=== PATIENT | female | born 1970 | race Caucasian/White ===

== ENCOUNTER 2018-09-16 15:35 | Inpatient (IN) ==
[2018-09-16] MEDS ORDERED: MethylPREDNISolone Sod Succinate Inj 125 MG/2 ML Vial IV.PUSH ONE (15:46)
--- NOTE | 2018-09-16 16:02 | ED ---
HPI General Chief Complaint: Respiratory Symptoms Stated Complaint: SOB Time Seen by Provider: 09/16/18 15:36 Source: patient and EMS Mode of arrival: EMS Limitations: no limitations History of Present Illness HPI Narrative: Patient is a 48-year-old female presenting to emerge department for evaluation of shortness of breath. Patient states it started 3 weeks ago, she went to her primary doctor at that time and was given an albuterol inhaler. She states since then has been worsening. Patient states that she has been wheezing. She denies any fevers or chills, she states the cough is productive with yellow sputum. She further denies any nausea, vomiting, dizziness, headaches, chest pain. Patient last used her albuterol inhaler 2 hours prior to arrival in the emergency department. Symptom onset was gradual, symptoms are moderate nature. No known exacerbating factors, there are no alleviating factors at this time. Patient has a 30-year history of smoking, she quit 2 years ago. Onset (ago): week(s) Duration: constant and progressively worsening Severity: severe Relieving factors: nothing Exacerbating factors: nothing Description of mucous: Reports green Related Data Home Medications Medication Instructions Recorded Confirmed Seizure Med Unknown 09/16/18 Allergies Allergy/AdvReac Type Severity Reaction Status Date / Time aspirin Allergy Unknown Anaphylaxis Verified 09/16/18 15:46 Review of Systems ROS: all other systems reviewed are negative [facility] Medical History Medical History Seizures (Acute) Surgical History Surgical History History of tubal ligation (Acute) Previous section (Acute) Family History Family History Other Family history normal Social History Social History Substance History: No History of Abuse Smoking Status: Former smoker How Often Do You Have a Drink Containing Alcohol: Monthly or less Recent Travel in [facility] within the Last 8 Weeks: No Recent Out of Country Travel within the Last 8 Weeks: No Immunization History Tetanus Immunization: Unsure Exam Narrative Exam Narrative: GENERAL: Thin, well-developed, alert female. Presenting in no acute distress. SKIN: Focused skin assessment warm/dry. HEAD: Atraumatic. Normocephalic. EYES: Pupils equal and round. No scleral icterus. No injection or drainage. ENT: No nasal bleeding or discharge. Mucous membranes pink and moist. NECK: Trachea midline. No JVD. CARDIOVASCULAR: Tachycardic. No murmur appreciated. RESPIRATORY: Tachypnea. Decreased breath sounds at the bases, expiratory wheezing throughout. GASTROINTESTINAL: Abdomen soft, non-tender, nondistended. Hepatic and splenic margins not palpable. MUSCULOSKELETAL: No obvious deformities. No clubbing. No cyanosis. No edema. NEUROLOGICAL: Awake and alert. No obvious cranial nerve deficits. Motor grossly within normal limits. Normal speech. PSYCHIATRIC: Appropriate mood and affect; insight and judgment normal. Course Initial Documented Vital Signs Temperature 98.9 F 09/16/18 15:41 Pulse Rate 109 H 09/16/18 15:41 Respiratory Rate 27 H 09/16/18 15:41 Blood Pressure 132/79 09/16/18 15:41 Pulse Oximetry 97 09/16/18 15:41 Last Documented Vital Signs Temperature 98.9 F 09/16/18 15:41 Pulse Rate 114 H 09/16/18 19:34 Respiratory Rate 36 H 09/16/18 19:35 Blood Pressure 132/79 09/16/18 15:41 Pulse Oximetry 97 09/16/18 20:15 Medical Decision Making MDM Narrative Medical decision making narrative: Patient presented for evaluation of shortness of breath. She did [id number] history of smoking, never diagnosed with COPD. She is tachypneic and tachycardic on arrival, patient will be given duo nebs, Solu-Medrol and budesonide now. Imaging and labs ordered and pending. Labs reviewed, no acute findings identified. Chest x-ray showed abnormality and recommended CT scan. CT shows bilateral pneumonitis, worse in the left than the right. Patient was given azithromycin and Rocephin. She also received a liter of IV fluids. Heart rate trends down to the low 100s when patient is sedentary, she attempted to ambulate to the bathroom and her heart rate increased to 120s. Her pulse ox when ambulating trended down to 89-90% after walking only 20 feet. Patient became very tachypneic and again her heart rate increase. For this reason patient will be admitted to optimize respiratory status. Patient is agreeable, admit orders placed. Medical Screen Exam Complete: Yes Emergency Medical Condition: Yes Differential Diagnosis Differential Diagnosis: Bronchitis versus pneumonia versus metabolic abnormality versus pulmonary embolism versus other Lab Data Lab results reviewed: Yes I reviewed the patient's lab results. Result diagrams: 09/16/18 16:01 09/16/18 16:01 Lab Results 09/16/18 09/16/18 09/16/18 Range/Units 16:01 16:01 16:01 WBC 10.4 (4.0-11.0) th/mm3 RBC 4.62 (4.00-5.30) mil/mm3 Hgb 14.1 (11.6-15.3) gm/dL Hct 39.5 (35.0-46.0) % MCV 85.5 (80.0-100.0) fL MCH 30.5 (27.0-34.0) pg MCHC 35.7 (32.0-36.0) % RDW 13.8 (11.6-17.2) % Plt Count 334 (150-450) th/mm3 MPV 8.2 (7.0-11.0) fL Neut % (Auto) 66.4 (16.0-70.0) % Lymph % (Auto) 23.1 (9.0-44.0) % [place] % (Auto) 6.0 (0.0-8.0) % Eos % (Auto) 4.0 (0.0-4.0) % Baso % (Auto) 0.5 (0.0-2.0) % Neut # (Auto) 6.9 (1.8-7.7) th/mm3 Lymph # (Auto) 2.4 (1.0-4.8) th/mm3 [place] # (Auto) 0.6 (0.0-0.9) th/mm3 Eos # (Auto) 0.4 (0.0-0.4) th/mm3 Baso # (Auto) 0.1 (0.0-0.2) th/mm3 WBC Differential . Differential Comment Auto diff final D-Dimer Quant (PE/DVT) 0.51 H (0.00-0.50) mg/L FEU Sodium 138 (136-145) meq/L Potassium 4.3 (3.5-5.1) meq/L Chloride 106 (98-107) meq/L Carbon Dioxide 23.5 (21.0-32.0) meq/L Anion Gap 9 (5-15) meq/L BUN 14 (7-18) mg/dL Creatinine 0.83 (0.50-1.00) mg/dL Estimated GFR 73 L (>89) mL/min Random Glucose 92 (74-106) mg/dL Calcium 9.0 (8.5-10.1) mg/dL Magnesium 2.6 H (1.5-2.5) mg/dL Total Bilirubin 0.6 (0.2-1.0) mg/dL AST 34 (15-37) U/L ALT 19 (10-53) U/L Alkaline Phosphatase 104 (45-117) U/L Total Protein 9.0 H (6.4-8.2) g/dL Albumin 3.7 (3.4-5.0) g/dL Imaging Data Radiologist's impression: Chest X-Ray 09/16/18 15:46 CONCLUSION: Abnormal chest appearance. No priors. Recommend CT chest for further evaluation. Chest CTA 09/16/18 16:37 CONCLUSION: 1. No evidence of pulmonary embolism. No filling defects are identified. 2. Areas of pneumonitis left upper lobe greater than right upper lobe. The lung bases are clear. Discharge Plan Discharge Disposition Patient Disposition: 30 Still Patient Discharge Condition Condition: Stable Discharge Details Diagnosis: Pneumonia, Hypoxia Physicians Team ED Provider: Markel Boogie ED Midlevel Provider: Chelsy Bass Primary Care Provider: UNKNOWN, Attending Provider: Yamileth Valles Discharge Interventions Interventions: Vital Signs Last Done: 09/16/18 19:35 Status ED Status: Admitted Patient
[2018-09-16 16:22] LABS: Baso # (Auto) 0.1 th/mm3 (0.0-0.2); Baso % (Auto) 0.5 % (0.0-2.0); Eos # (Auto) 0.4 th/mm3 (0.0-0.4); Hematocrit 39.5 % (35.0-46.0); Hemoglobin 14.1 gm/dL (11.6-15.3); Lymph # (Auto) 2.4 th/mm3 (1.0-4.8); Lymph % (Auto) 23.1 % (9.0-44.0); Mean Corpuscular HGB Conc 35.7 % (32.0-36.0); Mean Corpuscular Hemoglobin 30.5 pg (27.0-34.0); Mean Corpuscular Volume 85.5 fL (80.0-100.0); Mean Platelet Volume 8.2 fL (7.0-11.0); Mono # (Auto) 0.6 th/mm3 (0.0-0.9); Neut # (Auto) 6.9 th/mm3 (1.8-7.7); Neut % (Auto) 66.4 % (16.0-70.0); Platelet Count 334 th/mm3 (150-450); Red Blood Count 4.62 mil/mm3 (4.00-5.30); Red Cell Distribution Width 13.8 % (11.6-17.2); White Blood Count 10.4 th/mm3 (4.0-11.0)
[2018-09-16] MEDS ORDERED: Azithromycin 250 MG Tablet PO ONE (16:23)
--- NOTE | 2018-09-16 16:32 | XR ---
EXAM DATE: 09/16/2018 3:46 PM EDT AGE/SEX: 48 years / Female INDICATIONS: Short of breath. CLINICAL DATA: This is the patient's initial encounter. Patient reports that signs and symptoms have been present for 2 days and indicates a pain score of 0/10. MEDICAL/SURGICAL HISTORY: None. None. COMPARISON: No prior exams available for comparison. FINDINGS: No prior studies are available. There is slight prominence of the left hilar region and loss of conca vity of the AP window. There is slight apparent superior retraction of the hilar structures which is presumably chronic. Slight biapical pleural thickening. No definite infiltrate or effusion elsewhere. Heart size is within normal limits. CONCLUSION: Abnormal chest appearance. No priors. Recommend CT chest for further evaluation. Electronically signed by: Aquiles Gray MD 09/16/2018 4:30 PM EDT
[2018-09-16 16:43] LABS: Alkaline Phosphatase 104 U/L (45-117)
[2018-09-16 16:45] LABS: Alanine Aminotransferase 19 U/L (10-53); Albumin 3.7 g/dL (3.4-5.0); Anion Gap 9 meq/L (5-15); Aspartate Aminotransferase 34 U/L (15-37); Blood Urea Nitrogen 14 mg/dL (7-18); Carbon Dioxide 23.5 meq/L (21.0-32.0); Chloride 106 meq/L (98-107); Glomerular Filtration Rate 73 mL/min (>89); Glucose,Random 92 mg/dL (74-106); Magnesium 2.6 mg/dL (1.5-2.5); Sodium 138 meq/L (136-145)
[2018-09-16 16:57] LABS: Potassium 4.3 meq/L (3.5-5.1)
--- NOTE | 2018-09-16 17:44 | CT ---
EXAM DATE: 09/16/2018 5:03 PM EDT AGE/SEX: 48 years / Female INDICATIONS: Abnormal chest x-ray. Shortness of breath. CLINICAL DATA: This is the patient's initial encounter. Patient reports that signs and symptoms have been present for 1 day and indicates a pain score of 0/10. MEDICAL/SURGICAL HISTORY: Seizures. Tubal ligation. section. RADIATION DOSE: 5.50 CTDI (mGy) COMPARISON: No prior exams available for comparison. TECHNIQUE: Volumetric scanning was performed using a multi-row detector CT scanner during bolus infu patricia of 50 ml Omnipaque 350 (iohexol) nonionic water-soluble contrast as a single exam dose. The desean a was post processed with a variety of visualization algorithms including full volume maximum intensi ty projection and sliding thin slab reformation. Using automated exposure control and adjustment of t he mA and/or kV according to patient size, radiation dose was kept as low as reasonably achievable to obtain optimal diagnostic quality images. DICOM format image data is available electronically for r eview and comparison. FINDINGS: Pulmonary Arteries: No filling defects are seen in the pulmonary arteries out to the subsegmental ve ssels. The left and right pulmonary arteries are normal in diameter. Lung: There is a geographic at times well marginated infiltrate in the left upper lobe posteriorly a nd in the left perihilar region. There are similar albeit smaller infiltrates in the right upper lobe particularly the right lung apex.. Effusion: None. Mediastinum: No evidence of mediastinal or hilar adenopathy. Other: The axilla is unremarkable. CONCLUSION: 1. No evidence of pulmonary embolism. No filling defects are identified. 2. Areas of pneumonitis left upper lobe greater than right upper lobe. The lung bases are clear. Electronically signed by: Brent Ramirez MD 09/16/2018 5:43 PM EDT
[2018-09-16] MEDS ORDERED: Sod Chloride 0.9% Inj 1,000 ML IV.SIG SCH (18:45)
[2018-09-16] MEDS ORDERED: Acetaminophen 325 MG Tablet PO PRN (20:11)
[2018-09-16] MEDS ORDERED: Bisacodyl 10 MG Supp RECTAL PRN (20:11)
--- NOTE | 2018-09-16 20:16 | P.HP ---
History of Present Illness Service: [facility] Primary Care Physician: UNKNOWN History of Present Illness: 48-year-old female with a past medical history of seizure disorder, not currently taking any medications and last seizure 1 year ago with history of tobacco abuse presents the emergency department for evaluation of shortness of breath. Patient reports that her symptoms started last night and she was just not able to breathe. She endorses an accompanying cough productive of yellow sputum. Denies any fever/chills. Does not have a formal diagnosis of COPD. No chest pain. No abdominal pain. No nausea/vomiting/diarrhea. Inpatient Certification: I certify that the inpatient services were ordered in accordance with Medicare regulations governing the order. This includes certification that hospital inpatient services are reasonable and necessary and in the case of services not specified as inpatient-only under 42 CFR 419.22(n), that they are appropriately provided as inpatient services in accordance to with the 2-midnight benchmark under 43 CFR 412.3(e) Review of Systems All other systems reviewed negative except as stated in [facility] - History History Provided By: Patient, Bulkhead Carpenter / EMT - Medical History Medical History: Medical History (Last Reviewed 09/16/18 @ 20:13 by Yamileth Valles MD) Seizures - Surgical History Surgical History: Surgical History (Last Reviewed 09/16/18 @ 20:13 by Yamileth Valles MD) History of tubal ligation Previous section - Family History Family History: Family History (Last Updated 09/16/18 @ 20:14 by Yamileth Valles MD) Other Family history normal - Tobacco History Smoking Status: Former smoker - Alcohol History How Often Do You Have a Drink Containing Alcohol: Monthly or less - Substance Use History Substance History: No History of Abuse - Travel History Recent Travel in the [place] Within the Last 8 Weeks: No Recent Travel Out of the Country Within the Last 8 Weeks: No - Immunization History Tetanus Immunization: Unsure Medications and Allergies Active Medications: Active Medications Ceftriaxone Sodium 2,000 mg/ (Sodium Chloride) 100 mls @ 200 mls/hr IV.SIG Q24H DEREK Last Infusion: 09/16/18 19:31 Dose: Infused Sodium Chloride (Ns Inj) 1,000 mls @ 0 mls/hr IV.SIG BOLUS DEREK Last Infusion: 09/16/18 19:31 Dose: Infused Allergies Allergy/AdvReac Type Severity Reaction Status Date / Time aspirin Allergy Unknown Anaphylaxis Verified 09/16/18 15:46 Home Medications Medication Instructions Recorded Confirmed Type Seizure Med Unknown 09/16/18 History Exam Vital signs: Vital Signs 09/16/18 15:41 09/16/18 15:49 09/16/18 19:34 Temperature 98.9 F Pulse Rate 109 H 114 H Respiratory Rate 27 H 26 H Blood Pressure 132/79 Pulse Oximetry 97 97 94 L 09/16/18 19:35 Temperature Pulse Rate Respiratory Rate 36 H Blood Pressure Pulse Oximetry 90 L Intake & Output 09/16/18 09/16/18 09/17/18 06:59 18:59 06:59 Intake Total 1100 / 1100 Balance 1100 / 1100 Weight 55.338 kg Intake: IV 1100 / 1100 NS Inj 1,000 ML @ Wide Open IV. 1000 / 1000 SIG BOLUS DEREK Rx#:[id number] Rocephin Inj 2,000 MG In NS Inj 100 / 100 100 ML @ 200 mls/hr IV.SIG Q24H DEREK Rx#:[id number] Narrative: Gen.: No acute distress Head: Normocephalic. Atraumatic. EENT: Pupils equal round and reactive to light. Nose without drainage. Airway intact. Throat without injection. Cardiovascular: Regular rate and rhythm. No murmurs, rubs or gallops. Respiratory: Bilateral wheezes/rhonchi throughout Abdomen: Soft, nontender, nondistended. No peritoneal signs. Musculoskeletal: No gross deformities. No edema. Skin: No obvious rashes or erythema. Neuro: Sensory and motor grossly intact. Cranial nerves II through XII grossly intact. Results - Labs CBC & Chem 7: 09/16/18 16:01 09/16/18 16:01 Labs: Laboratory Results - last 24 hr 09/16/18 09/16/18 09/16/18 16:01 16:01 16:01 WBC 10.4 RBC 4.62 Hgb 14.1 Hct 39.5 MCV 85.5 MCH 30.5 MCHC 35.7 RDW 13.8 Plt Count 334 MPV 8.2 Neut % (Auto) 66.4 Lymph % (Auto) 23.1 [place] % (Auto) 6.0 Eos % (Auto) 4.0 Baso % (Auto) 0.5 Neut # (Auto) 6.9 Lymph # (Auto) 2.4 [place] # (Auto) 0.6 Eos # (Auto) 0.4 Baso # (Auto) 0.1 WBC Differential . Differential Comment Auto diff final D-Dimer Quant (PE/DVT) 0.51 H Sodium 138 Potassium 4.3 Chloride 106 Carbon Dioxide 23.5 Anion Gap 9 BUN 14 Creatinine 0.83 Estimated GFR 73 L Random Glucose 92 Calcium 9.0 Magnesium 2.6 H Total Bilirubin 0.6 AST 34 ALT 19 Alkaline Phosphatase 104 Total Protein 9.0 H Albumin 3.7 - Imaging Impressions Chest X-Ray 09/16/18 15:46 CONCLUSION: Abnormal chest appearance. No priors. Recommend CT chest for further evaluation. Chest CTA 09/16/18 16:37 CONCLUSION: 1. No evidence of pulmonary embolism. No filling defects are identified. 2. Areas of pneumonitis left upper lobe greater than right upper lobe. The lung bases are clear. Caprini VTE Risk Assessment Caprini VTE Risk Assessment: No/Low Risk (score <= 1) Caprini Risk Assessment Model: Point Value = 1 Point Value = 2 Point Value = 3 Point Value = 5 Age 41-60 Minor surgery BMI > 25 kg/m2 Swollen legs Varicose veins or History of unexplained or recurrent spontaneous Oral contraceptives or hormone replacement Sepsis (< 1 month) Serious lung disease, including pneumonia (< 1 month) Abnormal pulmonary function Acute myocardial infarction Congestive heart failure (< 1 month) History of inflammatory bowel disease Medical patient at bed rest Age 61-74 Arthroscopic surgery Major open surgery (> 45 min) Laparoscopic surgery (> 45 min) Malignancy Confined to bed (> 72 hours) Immobilizing plaster cast Central venous access Age >= 75 History of VTE Family history of VTE Factor V Leiden Prothrombin [id number] Lupus anticoagulant Anticardiolipin antibodies Elevated serum homocysteine Heparin-induced thrombocytopenia Other congenital or acquired thrombophilia Stroke (< 1 month) Elective arthroplasty Hip, pelvis, or leg fracture Acute spinal cord injury (< 1 month) Prophylaxis Regimen: Total Risk Factor Score Risk Level Prophylaxis Regimen 0-1 Low Early ambulation 2 Moderate Order ONE of the following: *Sequential Compression Device (SCD) *Heparin 5000 units SQ BID 3-4 Higher Order ONE of the following medications: *Heparin 5000 units SQ TID *Enoxaparin/Lovenox 40 mg SQ daily (WT < 150 kg, CrCl > 30 mL/min) *Enoxaparin/Lovenox 30 mg SQ daily (WT < 150 kg, CrCl > 10-29 mL/min) *Enoxaparin/Lovenox 30 mg SQ BID (WT < 150 kg, CrCl > 30 mL/min) AND/OR *Sequential Compression Device (SCD) 5 or more Highest Order ONE of the following medications: *Heparin 5000 units SQ TID (Preferred with Epidurals) *Enoxaparin/Lovenox 40 mg SQ daily (WT < 150 kg, CrCl > 30 mL/min) *Enoxaparin/Lovenox 30 mg SQ daily (WT < 150 kg, CrCl > 10-29 mL/min) *Enoxaparin/Lovenox 30 mg SQ BID (WT < 150 kg, CrCl > 30 mL/min) AND *Sequential Compression Device (SCD) Assessment and Plan - Plan Assessment/plan: 1. COPD Patient's oxygen saturation drops with exertion to 89% Supplemental oxygen Levaquin given increased cough and sputum production Chest CT significant for areas of pneumonitis in the left upper lobe greater than the right upper lobe with no evidence of PE Patient denies any recent chemical exposures or inhalations IV steroids Patient will need outpatient pulmonary function testing 2. Seizure disorder Last seizure 1 year ago Patient not on any home medications Monitor FEN Regular diet Electrolytes: Monitor and replete as needed
[2018-09-16] MEDS: MethylPREDNISolone Sod Succinate Inj 125 MG/2 ML Vial IV.PUSH SCH (21:07)
[2018-09-16] MEDS: Senna/Docusate Sodium 8.6/50 MG Tablet PO SCH (21:07)
[2018-09-17] MEDS: MethylPREDNISolone Sod Succinate Inj 125 MG/2 ML Vial IV.PUSH SCH ×4 (04:34→20:26)
[2018-09-17 09:02] LABS: Baso % (Auto) 0.1 % (0.0-2.0); Hematocrit 39.3 % (35.0-46.0); Lymph # (Auto) 0.6 th/mm3 (1.0-4.8); Lymph % (Auto) 6.3 % (9.0-44.0); Mean Corpuscular HGB Conc 33.2 % (32.0-36.0); Mean Corpuscular Volume 87.4 fL (80.0-100.0); Mean Platelet Volume 7.7 fL (7.0-11.0); Mono # (Auto) 0.1 th/mm3 (0.0-0.9); Mono % (Auto) 1.2 % (0.0-8.0); Neut # (Auto) 9.2 th/mm3 (1.8-7.7); Neut % (Auto) 92.4 % (16.0-70.0); Platelet Count 305 th/mm3 (150-450)
[2018-09-17 09:31] LABS: Anion Gap 9 meq/L (5-15); Blood Urea Nitrogen 14 mg/dL (7-18); Calcium 8.9 mg/dL (8.5-10.1); Carbon Dioxide 21.3 meq/L (21.0-32.0); Chloride 109 meq/L (98-107); Glomerular Filtration Rate Greater Than 89 mL/min (>89); Glucose,Random 109 mg/dL (74-106); Potassium 3.8 meq/L (3.5-5.1); Sodium 139 meq/L (136-145)
[2018-09-17] MEDS: Senna/Docusate Sodium 8.6/50 MG Tablet PO SCH ×2 (09:37→20:27)
--- NOTE | 2018-09-17 16:54 | P.PNIM ---
Subjective Interval history: Patient complains of a mild cough. Otherwise no significant complaints of shortness of breath while on 2 L of oxygen. She does not have any other complaints. Physical Exam Vital signs: Vital Signs 09/16/18 19:34 09/16/18 19:35 09/16/18 20:15 Temperature Pulse Rate 114 H 90 Respiratory Rate 26 H 36 H 20 Blood Pressure 112/61 Pulse Oximetry 94 L 90 L 98 09/16/18 23:00 09/17/18 01:09 09/17/18 02:57 Temperature 98.3 F Pulse Rate 89 65 88 Respiratory Rate 16 19 18 Blood Pressure 98/54 L Pulse Oximetry 95 09/17/18 04:00 09/17/18 08:00 09/17/18 08:59 Temperature 97.7 F 97.8 F Pulse Rate 91 H 85 79 Respiratory Rate 17 16 14 Blood Pressure 102/62 106/64 Pulse Oximetry 95 97 98 09/17/18 12:00 09/17/18 12:37 Temperature 98.0 F Pulse Rate 97 H 90 Respiratory Rate 16 16 Blood Pressure 101/56 L Pulse Oximetry 95 Intake & Output 09/16/18 09/17/18 09/17/18 18:59 06:59 18:59 Intake Total 1100 / 1100 Balance 1100 / 1100 Weight 55.338 kg 55.338 kg Intake: IV 1100 / 1100 NS Inj 1,000 ML @ Wide Open IV. 1000 / 1000 SIG BOLUS DEREK Rx#:[id number] Rocephin Inj 2,000 MG In NS Inj 100 / 100 100 ML @ 200 mls/hr IV.SIG Q24H DEREK Rx#:[id number] Other: # Voids 2 Weight On Admission 55.338 kg Narrative: General patient in no acute distress HEENT extraocular movements are intact, clear oropharyngeal mucosa, no JVD Cardiovascular S1-S2 audible, RRR, no murmurs rubs or gallops Respiratory wheezing auscultated bilaterally Abdomen soft, nontender, nondistended, normal bowel sounds Extremities no edema 2+ distal pulses in bilateral upper and lower extremities Neuro cranial nerves II through XII intact Results - Labs CBC & Chem 7: 09/17/18 08:03 09/17/18 08:03 Laboratory Results - last 24 hr 09/16/18 09/17/18 09/17/18 16:01 08:03 08:03 WBC 10.0 RBC 4.50 Hgb 13.0 Hct 39.3 MCV 87.4 MCH 29.0 MCHC 33.2 RDW 14.0 Plt Count 305 MPV 7.7 Neut % (Auto) 92.4 H Lymph % (Auto) 6.3 L [place] % (Auto) 1.2 Eos % (Auto) 0.0 Baso % (Auto) 0.1 Neut # (Auto) 9.2 H Lymph # (Auto) 0.6 L [place] # (Auto) 0.1 Eos # (Auto) 0.0 Baso # (Auto) 0.0 WBC Differential . Differential Comment Auto diff final Sodium 138 139 Potassium 4.3 3.8 Chloride 106 109 H Carbon Dioxide 23.5 21.3 Anion Gap 9 9 BUN 14 14 Creatinine 0.83 0.63 Estimated GFR 73 L Greater than 89 Random Glucose 92 109 H Calcium 9.0 8.9 Magnesium 2.6 H AST 34 ALT 19 Albumin 3.7 - Imaging Impressions Chest CTA 09/16/18 16:37 CONCLUSION: 1. No evidence of pulmonary embolism. No filling defects are identified. 2. Areas of pneumonitis left upper lobe greater than right upper lobe. The lung bases are clear. Assessment and Plan - Plan This patient is a 48-year-old female with a diagnosis of seizure disorder however has been seizure-free for nearly 1 year without any medications. The patient states that she was previously on medications however stopped the medications do to insurance reasons. She also has an extensive tobacco smoking history and has been a smoker since the age of 16. She presents to our emergency department with complaints of shortness of breath while at home. 1. Acute hypoxic respiratory failure likely secondary to COPD exacerbation Patient had desaturations around 89%. She does not have a formal diagnosis of COPD however given her tobacco smoking history and her presentation it is likely obstructive pulmonary disease. She is currently on 2 L of supplemental oxygen. Chest CT shows areas of pneumonitis however no clear infiltrate. We will continue breathing treatments. Continue IV steroids and IV antibiotics. After the patient's symptoms improve she can follow-up with a primary care physician and will need outpatient pulmonary function tests. 2. Seizure disorder As per the patient she has been seizure-free for nearly 1 year. After discharge the patient will need to follow-up with her primary care physician and be referred to a neurologist for further evaluation and care of her seizures. Heparin for DVT prophylaxis.
[2018-09-17] MEDS: Heparin - SQ 10,000 UNITS/ML Vial SQ SCH (20:27)
--- NOTE | 2018-09-17 20:28 | ECG ---
Date Performed: 09/16/2018 Time Performed: 15:47:47 PTAGE: 48 years EKG: SINUS TACHYCARDIA ABNORMAL RHYTHM ECG NO PREVIOUS TRACING DOCTOR: Delroy Cooper Interpretating Date/Time 09/17/2018 20:27:41
[2018-09-18] MEDS: MethylPREDNISolone Sod Succinate Inj 125 MG/2 ML Vial IV.PUSH SCH ×2 (04:07→08:17)
[2018-09-18] MEDS: Heparin - SQ 10,000 UNITS/ML Vial SQ SCH (08:17)
[2018-09-18] MEDS: Senna/Docusate Sodium 8.6/50 MG Tablet PO SCH (08:18)
--- NOTE | 2018-09-18 12:16 | P.DS ---
Date of admission: 09/16/18 20:11 Primary care physician: UNKNOWN Brief History from admission: 48-year-old female with a past medical history of seizure disorder, not currently taking any medications and last seizure 1 year ago with history of tobacco abuse presents the emergency department for evaluation of shortness of breath. Patient reports that her symptoms started last night and she was just not able to breathe. She endorses an accompanying cough productive of yellow sputum. DS: Medications - Discharge Medications Prescriptions: albuterol sulfate [Ventolin HFA] 2 puff INH Q4H PRN #1 inhaler PRN Reason: Shortness Of Breath/Wheezing budesonide-formoterol [Symbicort] 2 puff INH BID #1 inhaler doxycycline hyclate 100 mg PO Q12HR #6 cap prednisone See Taper PO DAILY #14 tab DS: Summary Hospital Course: This patient is a 48-year-old female with a diagnosis of seizure disorder however has been seizure-free for nearly 1 year without any medications. The patient has an extensive tobacco smoking history and presented to our emergency department with complaints of shortness of breath on exertion while at home. She also felt that her chest was tight and came into our emergency department for evaluation. 1. Acute hypoxic respiratory failure likely secondary to COPD exacerbation On arrival the patient was found to have a low to oxygen saturation around 89%. There was a concern that the patient may have had a pulmonary embolus and a CTA of the chest was ordered. CT a of the chest did not show any findings consistent with a pulmonary embolus. No infiltrates. No fevers, no elevation in WBC count. On physical examination the patient was wheezing bilaterally. Given her extensive history of tobacco smoking since the age of 16 and is likely the patient has COPD. She was started on IV steroids, IV antibiotics, breathing treatments, and supplemental oxygen. After 2 days of treatment inside of the hospital the patient symptoms have improved significantly. She was titrated off of supplemental oxygen. A walk test was performed today and the patient is able to ambulate without supplemental oxygen and without complaints of shortness of breath. She will be discharged today with 3 more days of p.o. doxycycline and a tapering dose of prednisone. She will also be given an albuterol inhaler and a Symbicort inhaler. She will be discharged home today. The patient was advised to follow-up with the primary care physician within the next week. I recommend that she obtain outpatient pulmonary function tests. 2. Seizure disorder As per the patient she has been seizure-free for nearly 1 year. She was previously on carbamazepine for approximately 20 years. She states that she stopped taking the medication because she did not like how it made her feel and she has been seizure-free for a year without taking any medications. After discharge the patient will need to follow-up with her primary care physician and be referred to a neurologist for further evaluation and care of her seizures. For now the patient does not want to be started on any antiseizure medications because she says she feels better without them. She will be discharged home today. - Time Spent with Patient Total time spent providing and/or coordinating discharge services: Greater than 30 minutes - Quality: VTE Deep Vein Thrombosis/Pulmonary Embolism Present on Admission: No Exam Vital signs: Vital Signs 09/17/18 12:37 09/17/18 16:00 09/17/18 17:30 Temperature 98.8 F Pulse Rate 90 93 H 98 H Respiratory Rate 16 16 32 H Blood Pressure 107/63 Pulse Oximetry 98 09/17/18 19:25 09/17/18 19:38 09/17/18 20:00 Temperature 98.5 F Pulse Rate 105 H 116 H Respiratory Rate 18 18 Blood Pressure 106/60 Pulse Oximetry 96 96 09/17/18 22:41 09/17/18 23:30 09/18/18 04:00 Temperature 98.7 F 98 F Pulse Rate 108 H 85 117 H Respiratory Rate 18 18 18 Blood Pressure 113/68 107/61 Pulse Oximetry 97 98 09/18/18 04:03 09/18/18 08:00 09/18/18 08:37 Temperature 98.5 F Pulse Rate 90 101 H 101 H Respiratory Rate 20 20 16 Blood Pressure 112/55 L Pulse Oximetry 98 99 09/18/18 11:40 09/18/18 11:41 Temperature Pulse Rate Respiratory Rate Blood Pressure Pulse Oximetry 95 95 Intake & Output 09/17/18 09/18/18 09/18/18 18:59 06:59 18:59 Intake Total 250 / 250 Balance 250 / 250 Intake: IV 250 / 250 Levaquin 750 mg Premix Inj 150 150 / 150 ML @ 100 mls/hr IV.SIG Q24H [facility] Rx#:[id number] Rocephin Inj 2,000 MG In NS Inj 100 / 100 100 ML @ 200 mls/hr IV.SIG Q24H [facility] Rx#:[id number] Other: # Voids 4 Narrative: General patient in no acute distress HEENT extraocular movements are intact, clear oropharyngeal mucosa, no JVD Cardiovascular S1-S2 audible, RRR, no murmurs rubs or gallops Respiratory clear to auscultation bilaterally Abdomen soft, nontender, nondistended, normal bowel sounds Extremities no edema 2+ distal pulses in bilateral upper and lower extremities Neuro cranial nerves II through XII intact Results Procedures completed during hospitalization: none - Impressions ITS Impressions Chest X-Ray 09/16/18 15:46 CONCLUSION: Abnormal chest appearance. No priors. Recommend CT chest for further evaluation. Chest CTA 09/16/18 16:37 CONCLUSION: 1. No evidence of pulmonary embolism. No filling defects are identified. 2. Areas of pneumonitis left upper lobe greater than right upper lobe. The lung bases are clear. Discharge Plan - Discharge Disposition Patient Disposition: 01 Discharge Home - Discharge Condition Condition: Good - Discharge Order Discharge Orders: Discharge Order (Routine); Ordered 09/18/18 Ordered By: Ryan Oliveira - Physicians Team Primary Care Provider: UNKNOWN, Attending Provider: Ryan Oliveira
[2018-09-18 12:24] VITALS: BP 100/61; TEMP 98.2; O2SAT 97
[2018-09-18 12:31] VITALS: PULSE 107; RESP 20
[2018-09-18] MEDS ORDERED: Budesonide-Formoterol 80/4.5 MCG 6.9 GM Inhaler INH SCH (21:00)
[2018-09-19] MEDS ORDERED: predniSONE 20 MG Tablet PO SCH (09:00)
== END 2018-09-18 17:31 | disposition home or self-care (01) ==
LOC: NEPE 15:35 → NEDA 19:50 → INTOOBSV 19:50 → OBSVTOIN 20:11 → NEDA 21:58 → NEPGCP 22:06
PROVIDERS: ADMIT Hospitalist; ATTEND Hospitalist